=== PATIENT | male | born 1970 | race Hispanic/Latino ===

== ENCOUNTER 2016-11-28 21:08 | Emergency (ER) | payer SELFPAY ==
[~2016-11-28] VITALS: Ht 167.6 cm; Wt 93.2 kg
[2016-11-28 21:18] VITALS: BP 112/79; PULSE 116; RESP 16; O2SAT 95
[2016-11-28 22:00] LABS: BASOPHILS % (AUTO) 0 % (0-3); EOSINOPHILS % (AUTO) 0.1 % (0-5); MONOCYTES % (AUTO) 5.9 % (4-12); NEUTROPHILS % (AUTO) 86.2 % (40-74); Platelet Count 262 bil/L (150-400)
[2016-11-28 22:23] LABS: Magnesium 2.1 mg/dL (1.6-2.6)
[2016-11-28] MEDS ORDERED: Ondansetron 8 mg ODT Tablet ONE (22:27)
--- NOTE | 2016-11-28 22:36 | ED.REPORT ---
HPI-Abd Pain M 40 and Over Date of Service November 28, 2016 ED Provider: Dr. Garrett Jonas M.D. The patient is a 46 year old male with a history of gastric ulcers who presents to the ED with abdominal pain onset 1400 today. Associated symptoms include nausea, vomiting, diarrhea, dizziness, headache, and one syncopal episode while vomiting just prior to arrival. The patient hit his right shoulder during the syncopal episode but did not hit his head. He denies hematochezia, hematemesis, or other symptoms. The patient's children are also ill with similar symptoms. Nursing Notes Stated Complaint: STOMACH FLU, VOMITTING Chief Complaint: Male Abdominal Pain Nursing Notes Reviewed: Yes Allergies: Coded Allergies: No Known Allergies (Verified , 01/30/04) Scheduled PRN Ondansetron ODT (Ondansetron ODT) 4 Mg Tab.rapdis 4 MG PO QID PRN PRN For Nausea General Time Seen by MD: 22:35 Chief Complaint Abdominal pain Hx Obtained From: Patient Arrived By: Walk-in Sudden in Onset?: No Onset Occurred: 5 - 8 hours ago Symptom Duration: Since onset Location: : Diffuse Quality: Painful Severity: Current: Moderate Severity: Maximum: Moderate Pertinent Negative: Relieved by nothing Recent Healthcare: No recent doctor visit Past Medical History Past Medical History Gastric ulcers Asthma Past Surgical History None reported Smoking History Unknown if Ever Smoker Social History Alcohol Use: Denies alcohol use Other Social History: Good social support, , Lives with children Ambulatory Status Independent Review of Systems Constitutional: Denies: Fever Respiratory: Denies: Non-productive cough, Shortness of breath GI: Reports: Abdominal pain, Diarrhea, Nausea, Vomiting, Denies: Hematemesis, Hematochezia Musculoskeletal: Reports: Joint pain (Right shoulder) Complete sys rev & neg: except as marked. Neurologic: Reports: Dizziness, Headache, Syncope Physical Exam Initial Vital Signs Vital Signs (First) Date Time Temp Pulse Resp B/P Pulse Ox O2 Delivery O2 Flow Rate FiO2 11/28/16 21:18 37.2 116 16 112/79 95 Room Air Skin: Warm, Dry Neurologic: Alert, Oriented, Nonfocal Psychiatric: Mood/affect normal, Behavior normal, Normal thought content General/Constitutional: Awake, Alert Respiratory / Chest: Breath sounds NL, Breath sounds = bilat, No respiratory distress Cardiovascular: Heart rate NL, Regular rhythm, Heart sounds NL, No gallop, No murmurs, No rubs Abdomen: Soft, Non-tender, BS normoactive Head / Eyes: Atraumatic, Normocephalic Upper Extremity / MS: No deformity, Neurologic intact, Vascular intact Right Shoulder: Positive: Tenderness present... (Anterior) Interpretation & Diagnostics Lab Results Interpretation Result Diagram: 11/28/16215211/28/162152 Test 11/28/16 21:53 11/28/16 21:58 White Blood Count 8.1th/mm3 (3.8-10.1) Red Blood Count 5.78mil/mm3 (4.40-5.80) Hemoglobin 16.2g/dL (13.8-17.2) Hematocrit 47.4% (41.0-50.0) Mean Corpuscular Volume 82.0fL (81-100) Mean Corpuscular Hemoglobin 28.0pg (27.0-35.0) Mean Corpuscular Hemoglobin Concent 34.2% (32.0-37.0) Red Cell Distribution Width 15.2% (12.3-15.4) Platelet Count 262bil/L (150-400) Neutrophils (%) (Auto) 86.2% (40-74) Lymphocytes (%) (Auto) 7.4% (14-46) Monocytes (%) (Auto) 5.9% (4-12) Eosinophils (%) (Auto) 0.1% (0-5) Basophils (%) (Auto) 0% (0-3) Sodium Level 139mEq/L (134-144) Potassium Level 4.6mEq/L (3.5-5.2) Chloride Level 98mEq/L (97-108) Carbon Dioxide Level 23mmol/L (18-29) Blood Urea Nitrogen 21mg/dL (6-24) Creatinine 1.06mg/dL (0.76-1.27) Estimat Glomerular Filtration Rate 79mL/min (>59) Glucose Level 141mg/dL (60-99) Calcium Level 9.7mg/dL (8.5-10.1) Magnesium Level 2.1mg/dL (1.6-2.6) Total Bilirubin 0.5mg/dL (0.0-1.2) Aspartate Amino Transf (AST/SGOT) 35U/L (0-50) Alanine Aminotransferase (ALT/SGPT) 50U/L (0-44) Alkaline Phosphatase 77U/L (25-150) Total Protein 8.2g/dL (6.4-8.4) Albumin 4.5g/dL (3.4-5.0) Lipase 20U/L (13-60) Hold [place] Top Tube Received (Received) ECG Interpretation ECG Interpretation: Sinus rhythm rate [address] segment changes Probable left atrial enlargement Time: 23:31 Interpreted by: ED physician X-Ray Interpretation Xray Interpretation: Negative Study Performed: 2 view X-Ray Ordered: Shoulder right Interpretation / Wet Read by: Wet read ED physician Re-Eval/Medical Decision Time of Eval: 00:12 Patient Status: Condition improved Re-Evaluation/Progress Note: Discussed with patient x-ray and lab results, diagnosis, and plan for discharge. Follow-up and return to the ER instructions given. Patient agrees with plan for care and all questions were addressed. Counseled Regarding: Diagnosis, Lab results, Need for follow-up, When/why to return to ED Discharge & Departure Primary Impression: Nausea & vomiting Vomiting type: unspecified Vomiting Intractability: non-intractable Qualified Code: R11.2 - Nausea with vomiting, unspecified Additional Impressions: Gastroenteritis Syncope Syncope type: unspecified Qualified Code: R55 - Syncope and collapse Disposition: Home Vital Signs - All Vital Signs Date Time Temp Pulse Resp B/P Pulse Ox O2 Delivery O2 Flow Rate FiO2 11/29/16 00:28 37 97 14 121/74 93 Room Air 11/28/16 21:18 37.2 116 16 112/79 95 Room Air )( All Prior VS Reviewed: Yes Condition: Improved Patient Instructions: Gastroenteritis (ED) Additional Instructions: ED evaluation included interview exam labs and x-ray of R shoulder as well as ECG. We treated you with ondansetron a medication for nausea and IV fluids. Given history of multiple family members with similar symptoms this is almost certainly a viral gastroenteritis. It will resolve over the next few days. Rest and get adequate fluids. Diet as tolerated. Ondansetron as needed for nausea and vomiting. Return to emergency department for uncontrolled vomiting or bloody diarrhea severe abdominal pain. The episode of fainting is almost certainly related to the gastroenteritis. If you have more episodes of fainting return the emergency Department. Otherwise no specific care as needed. Follow-up with primary care in about one week. Referrals: N[facility]CP (PCP) Scribe Attestation Portions of this note were transcribed by Ilda Juarez. I, Dr. Jonas, personally performed the history, physical exam, and medical decision-making; I reviewed and confirmed the accuracy of the information in the transcribed note. Signed by: Thomas Jordan, 11/29/2016, 01:10 Garrett Jonas MD November 28, 2016 22:36 ILDA JUAREZ November 28, 2016 22:44
[2016-11-28] MEDS ORDERED: 0.9% Sodium Chloride 1,000 ML IV ONE (22:45)
[2016-11-29] MEDS ORDERED: ONDA4TAB12 PO (00:18)
[2016-11-29 00:28] VITALS: BP 121/74; PULSE 97; RESP 14; O2SAT 93
--- NOTE | 2016-11-29 08:38 | DRSVH ---
PROCEDURE: X-RAY RIGHT SHOULDER, MINIMUM TWO VIEWS ([id number]) INDICATIONS: shoulder pain post syncope TECHNIQUE: 3 views of the shoulder were acquired. COMPARISON: [facility], CR, CHEST 2VW, 06/29/2013, 11:12. FINDINGS: Bones: No fractures or dislocations. No suspicious bony lesions. Visualized ribs appear intact. M ild joint narrowing with periarticular osteophyte formation. Soft tissues: No suspicious soft tissue calcifications. IMPRESSION: No displaced fracture seen. If there is continued pain, followup exam or additional marybeth ging such as MRI or CT could be performed for further assessment. Dictated by: Nando Mallory RRA Interpreted: Katiana Horn MD on 11/29/2016 at 8:37 Transcribed by: LUIS ALBERTO on 11/29/2016 at 8:37 Approved by: Katiana Horn MD, PhD on 11/29/2016 at 9:39
== END 2016-11-29 00:34 | disposition home or self-care (01) ==
LOC: SED 21:08
DX: K52.9 Noninfective gastroenteritis and colitis, unspecified (principal); R55 Syncope and collapse; W22.8XXA Striking against or struck by other objects, initial encounter; Y93.89 Activity, other specified; Y92.89 Other specified places as the place of occurrence of the external cause; Y99.8 Other external cause status; M25.511 Pain in right shoulder; R42 Dizziness and giddiness; R51 Headache; J45.909 Unspecified asthma, uncomplicated; Z87.19 Personal history of other diseases of the digestive system
CPT/HCPCS: 36415; 73030; 80053; 83690; 83735; 85025; 93005; 96360; 99285; J7030